=== PATIENT | female | born 1980 | race Caucasian/White ===

== ENCOUNTER → 2022-07-13 | Outpatient (CLI) | payer MEDICAID, SELFPAY ==
--- NOTE | 2022-07-13 07:35 | US_ITS ---
STUDY: ABDOMINAL ULTRASOUND - ELASTOGRAPHY REASON FOR VISIT: Female, 41 years old. WILSON. TECHNIQUE: Liver stiffness measurements were obtained on a [employer] RS 85 ultrasound machine using a CA 1-7 probe following the SRU guidelines. 3 measurements were obtained using a 2-D-SWE method. The IQR/M was 25% suggesting a quality data set. TECHNICAL QUALITY: Adequate. COMPARISON: Comparison is made with prior study done earlier in the day. FINDINGS: Liver: Hepatomegaly and fatty infiltration of the liver. Median liver stiffness measured 17 kPa. US/Elastography Parenchyma/Organ IMPRESSION: Liver stiffness measures 17 kPa compatible with F3-F4 (Moderate to severe liver fibrosis) Metavir score. Electronically Signed: Pradip Lora MD at 10:42 EDT ,
--- NOTE | 2022-07-13 07:35 | US_ITS ---
STUDY: ABDOMINAL ULTRASOUND - RIGHT UPPER QUADRANT REASON FOR VISIT: Female, 41 years old RUQ liver eval -- LIVER DISEASE .WILSON. TECHNIQUE: Ultrasound evaluation of the right upper quadrant was performed with real-time and static chamberlain-scale imaging. TECHNICAL QUALITY: Adequate. COMPARISON: None. FINDINGS: Liver: The liver is enlarged and measures 19.3 cm. There is increased echogenicity consistent with fatty infiltration. The bile ducts are within normal limits. There is hepatic color flow. The direction of portal flow is hepatopetal. There is no demonstrated mass lesion. Gallbladder: Normal distended gallbladder. The gallbladder wall measures 1.9 mm. There is a negative sonographic Reese''s sign. There is no pericholecystic fluid. There are no gallstones. Common Bile Duct (C.B.D.): The common bile duct measures 5.2 mm. Pancreas: Normal size of the head, body and tail of the pancreas. There is normal echogenicity of the pancreas. There is no demonstrated pancreatic mass or cyst. Right Kidney: Normal size of the right kidney. The right kidney measures 11.6 cm x 5.8 cm x 4.9 cm. Normal renal cortex. The right cortex measures 2 cm. There is no demonstrated renal mass or cyst. There is no right hydronephrosis. US/Abdomen Limited IMPRESSION: Hepatomegaly and fatty infiltration of the liver. Electronically Signed: Pradip Lora MD at 10:41 EDT ,
== END | disposition home or self-care (01) ==
LOC: US 07:33
PROVIDERS: PCP Nurse Practitioner Family; Referring Provider Internal Medicine Gastroenterology; Visit Provider Internal Medicine Gastroenterology
DX: K76.9 Liver disease, unspecified (principal); R19.7 Diarrhea, unspecified
CPT/HCPCS: 76705; 76981

== ENCOUNTER 2022-07-14 10:44 | Day surgery (SDC) | payer MEDICAID, SELFPAY ==
[2022-07-14] VITALS (7 sets, daily range): BP systolic 88–127; BP diastolic 56–85; PULSE 75–99; RESP 16–18; TEMP 36.4–36.7; O2SAT 95–100; BMI 53.7
[2022-07-14] MEDS: Lactated Ringers 1,000 ML 15 ML IV (11:11)
--- NOTE | 2022-07-14 11:22 | HP.PCM_ITS ---
History and Physical Date of Admission: 07/14/22 TISH VASQUEZ, is a 41 F who presents to the office today for Initial consult. Tish established with this clinic 5 with referral from PCP for evaluation of GERD and abdominal pain. Reflux symptoms with sulfur taste in her mouth and belching which have worsened causing a feeling of nausea and decreased appetite. She has attempted prevacid and omeprazole. PMH includes hyperlipidemia, asthma, obesity, depression, DMII US RUQ 2.16.22 with coarse echotexture and mildly increased echogenicity without mass or nodularity. Belching sulfur for several days Mid abdominal pain with diarrhea intermittent ? ?milk, greasy foods trigger. Mornings are worst with 3BM loose stools with periodic blood/mucous. Present for several days with spontaneous resolution and will stay resolved 3-5 days. Immodium is helpful. Has attempted diet restriction. Denies FH bowel or liver disease disease. Periodic alcohol use throughout the year; one tattoo that started as a home tattoo and was then done in a parlor; denies blood transfusions. Fatty liver diagnosis previous. Reports anxiety and that she has fears/worry about things. Denies previous EGD or colonoscopy. ROS Const Constitutional: No fatigue, malaise, night sweats, weight change, sleep problems, abnormal sleep pattern or change in appetite ENT ENT: No difficulty swallowing, hoarseness or sore throat Cardio Cardiology: No chest pain at rest Gastro GI: No belching, change in bowel habits, change in stool character, coffee ground emesis, constipation, cramping, diarrhea, difficulty swallowing, feeling full early, excessive flatus, incontinent of stools, Vomiting blood/hematemesis, Blood in stool, loose stools, Black,tarry stools, nausea/dyspepsia, pain with swallowing, vomiting or other Musc Musculoskeletal: No joint pain Skin Skin: No yellowing of the eye or itchy eyes Neuro Neurology: No behavioral changes Psych Psychiatric: No abnormal sleep pattern, No anxiety, No behavioral changes, No change in appetite and No depression Endo Endocrine: No fatigue or weight change Aller/Imm Allergy/Immunologic: No itchy eyes Javier/Lymp Hematologic/Lymphatic: No easy bleeding or easy bruising Exam Const General: cooperative and comfortable Nutritional Appearance: average body habitus and well nourished HENMT Head: normal to inspection Ears: hearing grossly normal bilaterally Nose: external nose normal Face and sinus: normal facial exam Mouth: oral mucosae normal Throat: posterior oropharynx normal Eyes General: appearance normal, both eyes and all related structures Neck Neck: normal visual inspection Chest Chest palpation & inspection: normal inspection of the chest and normal palpation of entire chest wall Resp Effort & Inspection: normal respiratory effort Auscultation: Bilateral: Clear to Auscultation Cardio Palpation: normal PMI Rate: regular rate Rhythm: regular rhythm GI Inspection: normal to inspection Auscultation: normal bowel sounds Percussion: normal to percussion Palpation: no hepatosplenomegaly Skin General: no rashes or lesions noted Neuro General: patient alert Extrem General: normal to inspection Psych Affect: normal affect Quality Reporting Tobacco Screening ([facility] 138) Smoking Status: Current every day smoker Assessment and Plan Assessment and Plan (1) Diarrhea: ?Status:?Acute ? ? ? Orders:?Orders: ? HIV - [facility] Today ? ? ? Comprehensive Metabolic Profil Today ? ? ? CRP Today ? ? ? Ferritin Today ? ? ? LDH Today ? ? ? Hemoglobin A1c Today ? ? ? Prothrombin Time w/INR Today ? ? ? CBC W/Diff, Automated Today ? ? ? Erythrocyte Sed Rate Today ? ? ? Anti-Mitochondrial AB Today ? ? ? MAIKEL Comprehensive Panel Today ? ? ? Hepatitis Panel Acute Today ? ? ? Angiotensin Convert Enzyme Today ? ? ? AFP, Tumor Marker Today ? ? ? ANCA Today ? ? ? Anti-Smooth Muscle ABS Today ? ? ? Ceruloplasmin Today ? ? ? Copper, Serum or Plasma Today ? ? ? Immunoglobulins G/A/M/EA Today ? ? ? Haptoglobin Today ? ? ? Ammonia Today ? ? ? Abdomen Limited Today ? ? ? Elastography Parenchyma/Organ Today ? ? ? Calprotectin, Stool Today ? ? ? Ova and Parasites 8623 Today ? ? ? CDIFF (PCR) Today ? ? ? ENTERIC PATHOGEN PANEL STOOL Today ? ? ? Stool Lactoferrin/WBC Today ? ? ? Celiac Disease Profile Today ? ? ? Giardia Lamblia, Stool EIA Today ? ? ? JOSSE + Protein Elect, Serum Today ?Plan - Dr. Deras Friend, DO: Diarrhea and abdominal pain regarding her diarrhea, gastrocolic reflex in the setting of gastroparesis, small bacterial overgrowth.? I do not think she has inflammatory bowel disease but we will work it up. (2) Liver disease: ?Status:?Acute ? ? ? Orders:?Orders: ? HIV - [facility] Today ? ? ? Comprehensive Metabolic Profil Today ? ? ? CRP Today ? ? ? Ferritin Today ? ? ? LDH Today ? ? ? Hemoglobin A1c Today ? ? ? Prothrombin Time w/INR Today ? ? ? CBC W/Diff, Automated Today ? ? ? Erythrocyte Sed Rate Today ? ? ? Anti-Mitochondrial AB Today ? ? ? MAIKEL Comprehensive Panel Today ? ? ? Hepatitis Panel Acute Today ? ? ? Angiotensin Convert EnzymeA Today ? ? ? AFP, Tumor Marker Today ? ? ? ANCA Today ? ? ? Anti-Smooth Muscle ABS Today ? ? ? Ceruloplasmin Today ? ? ? Copper, Serum or Plasma Today ? ? ? Immunoglobulins G/A/M/E Today ? ? ? Haptoglobin Today ? ? ? Ammonia Today ? ? ? Abdomen Limited Today ? ? ? Elastography Parenchyma/Organ Today ? ? ? Calprotectin, Stool Today ? ? ? Ova and Parasites 8623 Today ? ? ? CDIFF (PCR) Today ? ? ? ENTERIC PATHOGEN PANEL STOOL Today ? ? ? Stool Lactoferrin/WBC Today ? ? ? Celiac Disease Profile Today ? ? ? Giardia Lamblia, Stool EIA Today ? ? ? JOSSE + Protein Elect, Serum Today ?Plan - Dr. Deras Friend, DO: Her ultrasound had shown heterogenicity with some possible scarring secondary to cirrhosis.? She will need to undergo a proper work-up and FibroScan, possible liver biopsy, autoimmune work-up for liver disease.? I suspect that there is likely secondary to fatty liver disease progressing.? She is okay with the work- up and all questions were answered appropriately regarding the natural history of. (3) Early satiety: ?Status:?Acute I have re-examined the patient. There are no clinical changes since date of exam.
[2022-07-14 11:30] LABS: Bedside Glucose 163 mg/dL (74-106)
--- NOTE | 2022-07-14 11:45 | IMM_PTH ---
PATIENT: TISH VASQUEZ LOC: EN U#:[id number] AGE/SX: 41/F ROOM: RE07/14/[address]: Dr. Braeden Lynne DO : 1980 BED: DIS: 07/14/2022 SPEC #: [id number] RECD: 07/14/22 14:21 STATUS: JAYA REAlfred #: [id number] LAKHWINDER: 07/14/22 11:[address]: Braeden Lynne DEPT: IMMUNOHISTOCHEMISTRY RECD BY: Minna Alva ENTERED: 07/14/22 14:21 SP TYPE: IMMUNO OTHR DR: Gloria Cortez, GRAPHIC ENGINEER-C Tissues: A - Stomach, NOS Procedures: H Pylori (initial) PHYSICIAN & INSTITUTION [place] [id number] SPECIMEN INFORMATION: Tissue Source: A ? Antrum biopsy Clinical Info: Diarrhea, liver disease Specimen Number: [id number] CPT code: 19540 METHODOLOGY: Deparaffinized sections of prefer/formalin-fixed tissue or PAP/DQ stained slides are incubated with monoclonal/polyclonal antibodies/oligonucleotide probes. Localization is made via biotin free immunoperoxidase method. Appropriate controls are performed and reacted as expected. Results on target cell population are indicated in the following table: RESULTS: ANTIBODY / CLONE RESULT Block A H Pylori (polyclonal) negative These tests were developed and their performance characteristics determined by [facility]. They may not have been cleared or approved by the U.S. Food and Drug Administration. The FDA has determined that such clearance or approval is not necessary. The above immunohistochemical/dualISH markers are ordered and reviewed by the Pathologist. INTERPRETATION: A. Antrum, biopsy: Negative for Helicobacter pylori organisms. SJ:nilsa 07/15/2022
--- NOTE | 2022-07-14 11:45 | EGD_PTH ---
PATIENT: TISH VASQUEZ LOC: EN U#:[id number] AGE/SX: 41/F ROOM: RE07/14/[address]: Dr. Braeden Lynne DO : 1980 BED: DIS: 07/14/2022 SPEC #: [id number] RECD: 07/14/22 13:22 STATUS: JAYA TYLER #: [id number] LAKHWINDER: 07/14/22 11:[address]: Braeden Lynne DEPT: SURGICAL PATHOLOGY RECD BY: Chapo Conte ENTERED: 07/14/22 13:28 SP TYPE: EGD BIOPSY OT DR: Gloria Cortez, ASSEMBLER FAUCETS-C Tissues: A - Gastric mucous membrane B - Duodenum, NOS C - Esophagus, NOS Procedures: Special Stain Group II Surgery Specimen Level IV Alcian Blue/PAS (control) HEADER OPERATION: E[place] ([facility] [place] with biopsies PRE-OP DIAGNOSIS: Diarrhea, liver disease TISSUE SUBMITTED: A ? Antrum biopsy for H. pylori and path, B ? Duodenum biopsy, C ? Distal esophagus biopsy MICROSCOPIC DIAGNOSIS A. Antrum, biopsy: Mild gastritis. See microscopic description and comment. B. Duodenum, biopsy: Fragments of duodenal mucosa, no pathologic diagnosis. C. Distal esophagus, biopsy: Fragments of gastroesophageal mucosa with chronic inflammation. Intestinal metaplasia (goblet cell metaplasia) not identified. See comment. SJ:rg 07/15/2022 COMMENT A. The results of immunohistochemistry for Helicobacter pylori will be reported separately ([id number]). C. Alcian blue/PAS stain with matched control is used in the evaluation of the specimen. MICROSCOPIC DESCRIPTION Slides are reviewed. A. The specimen shows fragments of gastric mucosa with chronic inflammatory cell infiltrates in the lamina propria consisting of lymphocytes and plasma cells, consistent with mild chronic gastritis. GROSS DESCRIPTION A - Received in fixative is one container labeled with the patient's name and designated antrum biopsy. The specimen consists of multiple irregular fragments of light pandya soft tissue that in aggregate measure 0.8 x 0.5 x 0.1 cm. The specimen is totally submitted in one cassette. B - Received in fixative is one container labeled with the patient's name and designated duodenum biopsy. The specimen consists of two irregular fragments of light pandya soft tissue that in aggregate measure 0.6 x 0.3 x 0.1 cm. The specimen is totally submitted in one cassette. C - Received in fixative is one container labeled with the patient's name and designated distal esophagus biopsy. The specimen consists of two irregular fragments of light pandya soft tissue that in aggregate measure 0.8 x 0.3 x 0.1 cm. The specimen is totally submitted in one cassette. / SJ:rg 07/14/2022 TC:3 CPT: 75678 x3, 71084
--- NOTE | 2022-07-14 12:22 | OP.CCLET_ITS ---
07/14/2022 Gloria Cortez Re : Upper GI endoscopy procedure for Kavita Sylvester Dear Dana This procedure was performed on Thursday, July 14, 2022. My impressions and recommendations are as follows: Impressions : - LA Grade A reflux esophagitis. Biopsied. - Small hiatal hernia. - Erythematous mucosa in the antrum. Biopsied. - No gross lesions in the second portion of the duodenum. Biopsied. Recommendations : - Discharge patient to home. - Resume previous diet. - Continue present medications. - Await pathology results. My findings are described in the full procedure note, which is enclosed. If I can be of further assistance, please feel free to contact me at . Sincerely, Braeden Lynne, 07/14/2022 12:21:47 PM This report has been signed electronically.
--- NOTE | 2022-07-14 12:22 | OP.EGD_ITS ---
Patient Name: Kavita Sylvester Procedure Date: 07/14/2022 12:04 PM Date of : 1980 Age: 41 Procedure: Upper GI endoscopy Indications: Epigastric abdominal pain, Functional Dyspepsia, Suspected esophageal reflux Providers: Braeden Lynne DO Medicines: Monitored Anesthesia Care Patient Profile: This is a 41 year old female. Refer to note in patient chart for documentation of history and physical. Patient has symptoms of acute abdominal distention, chronic abdominal distention, chronic dyspepsia and chronic heartburn. Complications: No immediate complications. Procedure: Pre-Anesthesia Assessment: - Prior to the procedure, a History and Physical was performed, and patient medications and allergies were reviewed. The risks and benefits of the procedure and the sedation options and risks were discussed with the patient. All questions were answered and informed consent was obtained. Patient identification and proposed procedure were verified by the physician in the pre-procedure area. Mental Status Examination: alert and oriented. Airway Examination: normal oropharyngeal airway and neck mobility. Respiratory Examination: clear to auscultation. CV Examination: normal. Prophylactic Antibiotics: The patient does not require prophylactic antibiotics. Prior Anticoagulants: The patient has taken no previous anticoagulant or antiplatelet agents. After reviewing the risks and benefits, the patient was deemed in satisfactory condition to undergo the procedure. The anesthesia plan was to use monitored anesthesia care (MAC). Immediately prior to administration of medications, the patient was re-assessed for adequacy to receive sedatives. The heart rate, respiratory rate, oxygen saturations, blood pressure, adequacy of pulmonary ventilation, and response to care were monitored throughout the procedure. The physical status of the patient was re-assessed after the procedure. After obtaining informed consent, the endoscope was passed under direct vision. Throughout the procedure, the patient's blood pressure, pulse, and oxygen saturations were monitored continuously. The gastroscope was introduced through the mouth, and advanced to the second part of duodenum. The upper GI endoscopy was accomplished without difficulty. The patient tolerated the procedure well. Scope In: 12:10:19 PM Scope Out: 12:15:33 PM Total Procedure Duration Time 0 hours 5 minutes 14 seconds Findings: LA Grade A (one or more mucosal breaks less than 5 mm, not extending between tops of 2 mucosal folds) esophagitis with no bleeding was found 36 to 38 cm from the incisors. Biopsies were taken with a cold forceps for histology. Verification of patient identification for the specimen was done. Estimated blood loss was minimal. A small hiatal hernia was present. Patchy moderately erythematous mucosa without bleeding was found in the gastric antrum. Biopsies were taken with a cold forceps for histology. Verification of patient identification for the specimen was done. Estimated blood loss was minimal. No gross lesions were noted in the second portion of the duodenum. Biopsies were taken with a cold forceps for histology. Verification of patient identification for the specimen was done. Estimated blood loss was minimal. Impression: - LA Grade A reflux esophagitis. Biopsied. - Small hiatal hernia. - Erythematous mucosa in the antrum. Biopsied. - No gross lesions in the second portion of the duodenum. Biopsied. Recommendation: - Discharge patient to home. - Resume previous diet. - Continue present medications. - Await pathology results. Procedure Code(s): --- Professional --- 84141, Esophagogastroduodenoscopy, flexible, transoral; with biopsy, single or multiple CPT copyright 2017 [employer]. All rights reserved. The codes documented in this report are preliminary and upon facilities project manager review may be revised to meet current compliance requirements. Braeden Lynne DO 07/14/2022 12:21:47 PM This report has been signed electronically. Number of Addenda: 0 Note Initiated On: 07/14/2022 12:04 PM
== END 2022-07-14 13:07 | disposition home or self-care (01) ==
LOC: EN 10:49 → AC 10:50
PROVIDERS: PCP Nurse Practitioner Family; Referring Provider Nurse Practitioner Family; Visit Provider Internal Medicine Gastroenterology
PROC: 0DJ08ZZ Inspection of Upper Intestinal Tract, Via Natural or Artificial Opening Endoscopic (ICD-10-PCS; CPT 43235; principal; 2022-07-14 11:40)
DX: K29.70 Gastritis, unspecified, without bleeding (principal); E66.01 Morbid (severe) obesity due to excess calories; Z68.43 Body mass index [BMI] 50.0-59.9, adult; E11.9 Type 2 diabetes mellitus without complications; E78.5 Hyperlipidemia, unspecified; J45.909 Unspecified asthma, uncomplicated; F32.A Depression, unspecified; Z79.899 Other long term (current) drug therapy; Z79.84 Long term (current) use of oral hypoglycemic drugs; K76.0 Fatty (change of) liver, not elsewhere classified; G43.909 Migraine, unspecified, not intractable, without status migrainosus; K21.00 Gastro-esophageal reflux disease with esophagitis, without bleeding; K44.9 Diaphragmatic hernia without obstruction or gangrene
CPT/HCPCS: 43239; 82962; 88305; 88313; 88342; J7120; J2405

== ENCOUNTER → 2022-07-21 | Outpatient (CLI) | payer MEDICAID, SELFPAY ==
[2022-07-21 16:57] LABS: Ammonia < 10.0 umol/L (11-32)
[2022-07-21 16:58] LABS: Absolute Lymphocyte Count 1.99 X10^3/uL (0.83-4.51); Basophil# 0.04 X10^3/uL; Basophil% 0.6 % (0-1); Eosinophil# 0.06 X10^3/uL; Eosinophils% 0.9 % (0-5); Hematocrit 38.2 % (37-47); Hemoglobin 12.3 g/dL (12.0-15.0); Lymphocyte # 1.99 X10^3/ul (0.83-4.51); Lymphocyte % 30.9 % (19-41); Mean Corp Hgb Conc 32.2 g/dL (32-36); Mean Corpuscular Hgb 28.1 pg (27.0-32.0); Mean Corpuscular Volume 87.2 fL (81-99); Mean Platelet Vol. 9.1 fl (6.2-12.0); Monocyte# 0.32 X10^3/uL; NRBC Flagged by Analyzer 0 % (0-5); Neutrophil # 3.97 X10^3/uL (2.7-7.7); Neutrophil % 61.7 % (47-70); Platelet Count 249 K/mm3 (150-450); RBC Distribution Width CV 13.8 % (11.6-14.6); RBC Distribution Width SD 43.6 fl (35.1-43.9); Red Blood Count 4.38 M/mm3 (4.2-5.4); White Blood Count 6.4 K/mm3 (4.4-11.0)
[2022-07-21 17:04] LABS: Prothrombin Time (Protime)PT. 12.7 SECONDS (11.7-14.9)
[2022-07-21 17:09] LABS: Erythrocyte Sedimentation Rate 37 mm/hr (0-30)
[2022-07-21 17:20] LABS: ALB/GLOB Ratio 0.8 RATIO (0.9-2.4); AST(SGOT) 17 U/L (15-37); Alanine Aminotransfer ALT/SGPT 31 U/L (13-56); Albumin, Serum 3.3 g/dL (3.2-5.0); Alkaline Phosphatase 101 U/L (45-117); Anion Gap 8 (5-15); BUN 8 mg/dL (7-18); BUN/Creat Ratio 9.2 RATIO (10-20); Calcium,Total 8.8 mg/dL (8.5-10.1); Chloride 105 mmol/L (98-107); Creatinine, Serum 0.87 mg/dL (0.55-1.02); EST Glomerular Filtration Rate 76 mL/min (>60); Est Glom Filt Rate - Afr Amer 93 mL/min (>60); Ferritin 42 ng/mL (8-252); Globulin 3.9 g/dL (2.2-4.2); Glucose 175 mg/dL (74-106); LDH 170 U/L (84-246); Potassium 3.7 mmol/L (3.5-5.1); Protein, Total 7.2 g/dL (6.4-8.2); Sodium Level 136 mmol/L (136-145)
[2022-07-21 17:25] LABS: Hemoglobin A1c 7.7 % (3.8-5.6)
[2022-07-21 17:42] LABS: HIV - WCH Non-Reactive (Nonreactive)
[2022-07-23 14:09] LABS: Anti-Centromere B Ab <0.2 AI (0.0-0.9); Anti-Chromatin <0.2 AI (0.0-0.9); Anti-Jo <0.2 AI (0.0-0.9); Anti-Scleroderma-70 AB <0.2 AI (0.0-0.9); RNP Ab 0.3 AI (0.0-0.9); SJOGREN'S Anti-SS-A test < 0.2 AI (0.0-0.9); SJOGREN'S Anti-SS-B test < 0.2 AI (0.0-0.9); Smith Ab <0.2 AI (0.0-0.9)
[2022-07-23 14:51] LABS: Anti-Mitochondrial AB <20.0 Units (0.0-20.0); Anti-dsDNA Ab <1 IU/mL (0-9)
[2022-07-23 15:08] LABS: Endomysial Antibody IgA Negative (Negative)
[2022-07-24 07:11] LABS: Immunoglobulin A 270 mg/dL (87-352); t-Transglutaminase IgA <2 U/mL (0-3)
[2022-07-29 17:07] LABS: Albumin 3.5 g/dL (2.9-4.4); Alpha-1-Globulins 0.3 g/dL (0.0-0.4); Alpha-2-Globulins 0.9 g/dL (0.4-1.0); Angiotensin Convert Enzyme 15 U/L (14-82); Ceruloplasmin 30.3 mg/dL (19.0-39.0); Cytoplasmic Ab (C-ANCA) <1:20 titer (Neg:<1:20); HEPATITIS B SURFACE AG Negative (Negative); Hep C Antibodies <0.1 s/co ratio (0.0-0.9); Hepatitis A IgM Antibody Negative (Negative); Hepatitis B Core AB IgM Negative (Negative); Immunoglobulin A 265 mg/dL (87-352); Immunoglobulin E 264 IU/mL (6-495); Immunoglobulin G 977 mg/dL (586-1602); Immunoglobulin M 88 mg/dL (26-217); PROEL- TOTAL PROTEIN 6.7 g/dL (6.0-8.5)
[2022-07-30 20:24] LABS: Anti-Smooth Muscle ABS 5 Units (0-19); Haptoglobin 202 mg/dL (33-278)
[2022-07-30 20:25] LABS: AFP, Tumor Marker 1.9 ng/mL (0.0-6.4); Copper, Serum or Plasma 129 ug/dL (80-158); Perinuclear Ab (P-ANCA) <1:20 titer (Neg:<1:20)
== END | disposition home or self-care (01) ==
LOC: LAB 16:05
PROVIDERS: PCP Nurse Practitioner Family; Referring Provider Internal Medicine Gastroenterology; Visit Provider Internal Medicine Gastroenterology
DX: K76.9 Liver disease, unspecified (principal); R19.7 Diarrhea, unspecified
CPT/HCPCS: 36415; 80053; 80074; 82105; 82140; 82164; 82390; 82525; 82728; 82784; 82785; 83010; 83036; 83516; 83615; 84165; 85025; 85610; 85652; 86140; 86225; 86235; 86255; 86256; 86334; 86703

== ENCOUNTER 2022-10-01 08:21 | Outpatient (CLI) | payer MEDICAID, SELFPAY ==
[2022-10-05 16:33] LABS: Calprotectin, Stool 161 ug/g (0-120)
== END 2022-10-01 23:59 | disposition home or self-care (01) ==
PROVIDERS: PCP Nurse Practitioner Family; Referring Provider Internal Medicine Gastroenterology; Visit Provider Internal Medicine Gastroenterology
DX: K58.9 Irritable bowel syndrome, unspecified (principal); K76.9 Liver disease, unspecified; R19.7 Diarrhea, unspecified
CPT/HCPCS: 87329; 83630; 83993; 87177; 87209; 87506